=== PATIENT | female | born 1930 | race Caucasian/White ===

== ENCOUNTER 2016-05-23 10:30 | Observation (INO) | payer OTHER ==
[~2016-05-23] VITALS: Ht 167.6 cm; Wt 53.0 kg
[~2016-05-23 10:30] MED LIST: ADULT ONE DAI200 MCG PO; ASPIRIN81 M2 PO; CALCIUM 600 +1 EAC1 PO; CALCIUM 600 +1 EACH PO; CALTRATE 600 +1 EAC1 PO; CHEWABLE MULTI1 EACH PO; CHILDREN'S ASPI81 M1 PO; GABAPENTIN100 MG PO; LISINOPRIL-HCT1 EACH PO; LISINOPRIL5 MG PO; MAGNESIUM250 MG PO; MULTIVITAMIN1 EAC2 PO; NEURONTIN100 MG PO; NEURONTIN300 MG PO; Neurontin PO; PROTONIX40 MG PO; PROVENTIL HFA6.7 GM IH; VENTOLIN HFA18 GM IH; VITAMIN D1000 UNIT PO; Vitamin D PO
[2016-05-23 11:20] LABS: HEMATOCRIT 39.5 % (36.0-46.0); MCH 28.1 PG (29.0-34.0); MCHC 32.4 G/DL (30.0-36.0); MCV 86.8 FL (83-99); MEAN PLAT.VOLUME 9.5 uM^3 (9.5-12.4); PLATELET COUNT 204 K/uL (156-360); RBC DIS.WIDTH-CV 12.7 % (11.8-14.6); RBC DIS.WIDTH-SD 40.3 % (39-53); RED BLOOD COUNT 4.55 M/uL (3.80-5.20); WHITE BLOOD COUNT 8.6 K/uL (4.1-10.2)
[2016-05-23 11:29] LABS: CHLORIDE 103 mEq/L (99-109); POTASSIUM 4.1 mEq/L (3.7-5.4); SODIUM 139 mEq/L (136-147)
[2016-05-23 11:31] LABS: GLUCOSE 140 mg/dL (70-99)
[2016-05-23 11:32] LABS: ANION GAP 11 MEQ/L (2-14)
[2016-05-23 11:34] LABS: D-DIMER ELISA 0.57 mg/L FEU (< 0.57); GFR ESTIMATE (CALCULATED) 56 mL/min/; INTER. NORMALIZED RATIO 1.1; PROTHROMBIN TIME 11.4 (9.2-11.2)
[2016-05-23 11:35] LABS: UREA NITROGEN (BUN) 16 mg/dL (9-23)
[2016-05-23 11:42] LABS: TROP-I INTERPRETATION NEGATIVE; TROPONIN-I < 0.01 ng/mL (0.0-0.30)
[2016-05-23] MEDS ORDERED: CALTRATE 600 +1 EAC2 PO (13:03)
[2016-05-23] MEDS ORDERED: LISINOPRIL-HCT1 EACH PO (13:06)
[2016-05-23] MEDS ORDERED: MAGNESIUM OXID500 MG PO (13:06)
[2016-05-23] MEDS ORDERED: MULTI-VITAMIN1 EAC4 PO (13:07)
[2016-05-23] MEDS ORDERED: TYLENOL EXTRA500 MG PO (13:08)
[2016-05-23] MEDS ORDERED: FLONASE16 G1 BOTH NARES (13:09)
[2016-05-23] MEDS ORDERED: FLECTOR 1.3%1 PATC1 TD (13:09)
[2016-05-23 14:06] VITALS: BP 136/63
[2016-05-23 16:48] VITALS: BP 138/66
[2016-05-23 19:00] VITALS: BP 148/73
[2016-05-23 19:16] LABS: TROP-I INTERPRETATION NEGATIVE; TROPONIN-I 0.02 ng/mL (0.0-0.30)
[2016-05-24 01:27] LABS: TROP-I INTERPRETATION NEGATIVE; TROPONIN-I < 0.01 ng/mL (0.0-0.30)
[2016-05-24 04:05] VITALS: BP 136/76
[2016-05-24 06:13] LABS: HEMATOCRIT 35.6 % (36.0-46.0); MCH 28.8 PG (29.0-34.0); MCHC 33.1 G/DL (30.0-36.0); MCV 86.8 FL (83-99); MEAN PLAT.VOLUME 10.1 uM^3 (9.5-12.4); PLATELET COUNT 181 K/uL (156-360); RBC DIS.WIDTH-CV 12.7 % (11.8-14.6); RBC DIS.WIDTH-SD 40.2 % (39-53); WHITE BLOOD COUNT 9.3 K/uL (4.1-10.2)
[2016-05-24 06:18] LABS: ANION GAP 9 MEQ/L (2-14); CHLORIDE 103 MEQ/L (99-109); GFR ESTIMATE (CALCULATED) > 59 mL/min/; SAMPLE HEMOLYSIS CHECK 0; SAMPLE ICTERIC CHECK 0; SAMPLE LIPEMIA CHECK 0; SODIUM 139 MEQ/L (136-147); UREA NITROGEN (BUN) 19 mg/dL (9-23)
[2016-05-24 06:19] LABS: GLUCOSE 104 mg/dL (70-99)
[2016-05-24 09:00] VITALS: BP 150/68
[2016-05-24 12:35] VITALS: BP 129/59
[2016-05-24 16:31] VITALS: BP 116/59
[2016-05-24 21:06] VITALS: BP 141/68
[2016-05-24 23:33] VITALS: BP 99/52
[2016-05-25 04:03] VITALS: BP 102/54
[2016-05-25 08:00] VITALS: BP 137/65
[2016-05-25] MEDS ORDERED: PRAVASTATIN SOD40 MG PO (09:42)
== END 2016-05-25 10:55 | disposition home or self-care (01) ==
LOC: EME 10:30 → EDOF 12:20 → 5WEST 12:20
PROVIDERS: Emergency Medicine; Hospitalist
DX: I25.119 Atherosclerotic heart disease of native coronary artery with unspecified angina pectoris (principal); I24.9 Acute ischemic heart disease, unspecified; E86.0 Dehydration; M47.892 Other spondylosis, cervical region; M50.30 Other cervical disc degeneration, unspecified cervical region; R73.9 Hyperglycemia, unspecified; I10 Essential (primary) hypertension; J44.9 Chronic obstructive pulmonary disease, unspecified; E78.2 Mixed hyperlipidemia; G43.909 Migraine, unspecified, not intractable, without status migrainosus; I73.9 Peripheral vascular disease, unspecified; K21.9 Gastro-esophageal reflux disease without esophagitis; G62.9 Polyneuropathy, unspecified; M19.90 Unspecified osteoarthritis, unspecified site; Z85.3 Personal history of malignant neoplasm of breast
CPT/HCPCS: 70360; 71020; 72125; 73030; 80048; 84484; 85027; 85379; 85610; 85730; 93005; 99202; 99281; 99285; G0378; G8978 GP CJ; G8979 GP CH; G8980 CJ; J1644; J2405; J3010